=== PATIENT | female | born 1945 | race Caucasian/White ===

== ENCOUNTER 2017-08-17 13:37 | Emergency (ER) | payer MEDICARE ==
[2017-08-17 14:32] LABS: Bilirubin Negative (Negative); Blood, Urine Negative (Negative); Glucose, Urine (Dipstick) Negative (Negative); Ketone, Urine Trace mg/dL (Negative); Nitrite Negative (Negative); Protein, Urine (Dipstick) Trace mg/dL (Neg-Trace)
[2017-08-17 14:36] LABS: Bacteria/HPF None Seen HPF (None Seen)
--- NOTE | 2017-08-17 14:43 | RAD ---
PORTABLE CHEST 1 VIEW: Date: 08/17/17 Time: 1358 hours HISTORY: Syncope, fall. FINDINGS/IMPRESSION: The heart size is enlarged. The aorta is tortuous. The lungs are well expanded without focal areas o f consolidation, pneumothorax, or pleural effusions. There are degenerative changes in the left shou lder joint with suggestion of old fracture of the neck of the left humerus. Clinical correlation is recommended. POS: [facility]
[2017-08-17 14:50] LABS: Renal Epithelial 0-3 HPF (0-3); Transitional Epithelial 0-3 HPF (0-3)
--- NOTE | 2017-08-17 14:58 | CT ---
CT BRAIN WITHOUT CONTRAST: Date: 08/17/17 HISTORY: Trauma. Fall from standing height without loss of consciousness, headache. FINDINGS: There is ventricular sulcal prominence due to cortical atrophy. No evidence of acute infarct, hemorr judie, midline shift, or abnormal extra-axial fluid collections are seen. The basilar cisterns are pa tent. The bony calvarium is intact. The visualized paranasal sinuses and mastoid air cells are well aerated. IMPRESSION: No CT evidence of acute intracranial process. POS: [facility]
--- NOTE | 2017-08-17 15:08 | CT ---
CT CERVICAL SPINE WITH CORONAL AND SAGITTAL REFORMATIONS: HISTORY: Trauma. Fall. Headache FINDINGS: There is loss of cervical lordosis with mild reversal. There is interbody fusion at the C5, C6, and C7 levels. Degenerative changes are present. No acute fracture or subluxation is identified. POS: [facility]
--- NOTE | 2017-08-17 15:13 | RAD ---
RIGHT LEG TWO VIEWS: HISTORY: Fall. Right leg pain. FINDINGS: The right tibia and fibula appear intact. POS: [facility]
[2017-08-17 16:00] LABS: #Basophils 0.1 thou/uL (0.0-0.2); #Eosinphils 0.1 thou/uL (0.0-0.7); #Lymphocytes 0.9 thou/uL (1.20-3.40); #Monocytes 0.7 thou/uL (0.11-0.59); #Neutrophils 10.6 thou/uL (1.40-6.50); %Basophils 0.5 % (0.0-1.0); %Eosinophils 0.9 % (0.0-10.0); %Lymphocytes 7.4 % (21.0-51.0); %Monocytes 5.7 % (0.0-10.0); Hematocrit 37.3 % (36.0-47.0); Mean Platelet Volume 8.3 fL (7.4-10.4); Red Blood Cell (RBC) Count 3.86 mill/uL (4.20-5.40); White Blood Cell (WBC) Count 12.4 thou/uL (4.8-10.8)
[2017-08-17 16:06] LABS: PTT 28.5 SEC (22.9-36.1)
[2017-08-17 16:14] LABS: Anion Gap 13 mmol/L (10-20); BUN (Urea Nitrogen) 14 mg/dL (9.8-20.1); CK (CPK) 134 U/L (29-168); Calc. Creatinine Clearance 0 mL/min (70-130); Calcium 8.9 mg/dL (7.8-10.44); Carbon Dioxide 29 mmol/L (23-31); Chloride 102 mmol/L (98-107); Estimated GFR-MDRD 79; Lipase 36 U/L (8-78)
[2017-08-17 16:19] LABS: Troponin I Less than 0.010 ng/mL (< 0.028)
== END 2017-08-17 16:44 | disposition home or self-care (01) ==
LOC: ERS 13:37
DX: S09.90XA Unspecified injury of head, initial encounter (principal); S16.1XXA Strain of muscle, fascia and tendon at neck level, initial encounter; S80.12XA Contusion of left lower leg, initial encounter; Z79.899 Other long term (current) drug therapy; W18.30XA Fall on same level, unspecified, initial encounter; Y92.129 Unspecified place in nursing home as the place of occurrence of the external cause
CPT/HCPCS: 36415; 51701; 70450; 71010; 72125; 80048; 81003; 81015; 82553; 83690; 84484; 85025; 85610; 85730; 93005; A4353

== ENCOUNTER 2018-05-02 12:06 | Emergency (ER) | payer MEDICARE ==
--- NOTE | 2018-05-02 13:14 | CT ---
HEAD CT WITHOUT CONTRAST: COMPARISON: 08/17/17. HISTORY: Fall. TECHNIQUE: Noncontrast head CT is performed from the skull base to the skull vertex. FINDINGS: No parenchymal hemorrhage. No extraaxial hematoma. No midline shift. Basilar cisterns are patent. Age-appropriate atrophy. Chronic small-vessel ischemic changes of the white matter identified. Cor tical gonsalez-white matter differentiation is preserved. No evidence of hydrocephalus. Calvarium is in tact. Adequate aeration of the sinuses and mastoid air cells. Cavernous carotid atherosclerosis. IMPRESSION: No acute intracranial process. No intracranial posttraumatic sequelae. POS: [facility]
== END 2018-05-02 13:12 | disposition home or self-care (01) ==
LOC: ERS 12:06
DX: S09.90XA Unspecified injury of head, initial encounter (principal); E03.9 Hypothyroidism, unspecified; G30.9 Alzheimer's disease, unspecified; F02.80 Dementia in other diseases classified elsewhere, unspecified severity, without behavioral disturbance, psychotic disturbance, mood disturbance, and anxiety; F32.9 Major depressive disorder, single episode, unspecified; Z79.899 Other long term (current) drug therapy; W19.XXXA Unspecified fall, initial encounter
CPT/HCPCS: 70450

== ENCOUNTER 2018-06-21 18:51 | Emergency (ER) | payer MEDICARE ==
[2018-06-21 20:03] LABS: #Eosinphils 0.1 thou/uL (0.0-0.7); #Lymphocytes 1.4 thou/uL (1.20-3.40); #Monocytes 0.4 thou/uL (0.11-0.59); #Neutrophils 4.7 thou/uL (1.40-6.50); %Basophils 0.6 % (0.0-1.0); %Eosinophils 1.8 % (0.0-10.0); %Lymphocytes 21.1 % (21.0-51.0); %Monocytes 6.2 % (0.0-10.0); %Neutrophils 70.3 % (42.0-75.0); Hemoglobin 12.2 g/dL (12.0-16.0); Mean Corpuscular HGB CONC 34.4 g/dL (32.0-36.0); Mean Corpuscular Hemoglobin 32.8 pg (27.0-31.0); Mean Corpuscular Volume 95.5 fL (78.0-98.0); Mean Platelet Volume 7.6 fL (7.4-10.4); Platelet Count 202 thou/uL (130-400); RBC Distribution Width 11.1 % (11.5-14.5); Red Blood Cell (RBC) Count 3.72 mill/uL (4.20-5.40); White Blood Cell (WBC) Count 6.6 thou/uL (4.8-10.8)
--- NOTE | 2018-06-21 20:21 | CT ---
CT CERVICAL SPINE NONCONTRAST: HISTORY: Fall. Neck injury. COMPARISON: 08/17/2017 FINDINGS: Reversal of the normal lordotic curvature of the lower cervical spine and fusion of the C5, C6, and C 7 vertebral bodies is similar to the previous exam. No acute fracture or dislocation. The cervicoth oracic junction is intact. Otherwise, mild degenerative changes are stable. IMPRESSION: No acute osseous abnormalities are demonstrated. POS: [facility]
--- NOTE | 2018-06-21 20:22 | CT ---
CT HEAD NONCONTRAST: HISTORY: Fall. Head injury. COMPARISON: 05/02/2008 FINDINGS: There is no evidence of acute intracranial hemorrhage or infarct. Diffuse cortical atrophy and chron ic ischemic small vessel disease is stable. No mass effect or shift of midline structures. The visu alized paranasal sinuses remain well aerated. IMPRESSION: Chronic type findings are stable. No acute intracranial abnormalities are demonstrated. POS: [facility]
[2018-06-21 20:24] LABS: ALT (SGPT) 18 U/L (8-55); AST (SGOT) 25 U/L (5-34); Albumin 4.2 g/dL (3.4-4.8); Alkaline Phosphatase 164 U/L (40-150); Anion Gap 14 mmol/L (10-20); BUN (Urea Nitrogen) 26 mg/dL (9.8-20.1); Bilirubin, Total 0.3 mg/dL (0.2-1.2); Calc. Creatinine Clearance 0 mL/min (70-130); Carbon Dioxide 28 mmol/L (23-31); Chloride 104 mmol/L (98-107); Estimated GFR-MDRD 63; Globulin 2.7 g/dL (2.4-3.5); Glucose 103 mg/dL (83-110); Potassium 4.5 mmol/L (3.5-5.1); Protein, Total 6.9 g/dL (6.0-8.3); Sodium 141 mmol/L (136-145)
[2018-06-21 20:29] LABS: Troponin I Less than 0.010 ng/mL (< 0.028)
[2018-06-21] MEDS ORDERED: Bacitracin Zinc 1 Packet ONE (21:57)
== END 2018-06-21 22:01 | disposition home or self-care (01) ==
LOC: ERS 18:51
DX: S01.01XA Laceration without foreign body of scalp, initial encounter (principal); G30.9 Alzheimer's disease, unspecified; F02.80 Dementia in other diseases classified elsewhere, unspecified severity, without behavioral disturbance, psychotic disturbance, mood disturbance, and anxiety; F32.9 Major depressive disorder, single episode, unspecified; E03.9 Hypothyroidism, unspecified; Z79.1 Long term (current) use of non-steroidal anti-inflammatories (NSAID); Z79.899 Other long term (current) drug therapy; W19.XXXA Unspecified fall, initial encounter
CPT/HCPCS: 12001; 36415; 70450; 72125; 80053; 82553; 84484; 85025

== ENCOUNTER 2018-07-13 10:36 | Emergency (ER) | payer MEDICARE ==
--- NOTE | 2018-07-13 11:35 | CT ---
CT BRAIN PERFORMED WITHOUT CONTRAST ENHANCEMENT: HISTORY: Seizure. Altered mental status. COMPARISON: 06/21/2018 FINDINGS: There is generalized ventricular and sulcal prominence. There is decreased attenuation in the perive ntricular white matter. There are no signs of intracerebral hemorrhage or extraaxial fluid collectio ns. The mastoid air cells and visualized sinuses are clear. IMPRESSION: Atrophy with chronic white matter change. Stable examination. POS: [facility]
[2018-07-13 12:15] LABS: #Eosinphils 0.2 thou/uL (0.0-0.7); #Lymphocytes 1.4 thou/uL (1.20-3.40); #Monocytes 0.5 thou/uL (0.11-0.59); #Neutrophils 6.2 thou/uL (1.40-6.50); %Basophils 0.4 % (0.0-1.0); %Eosinophils 2.1 % (0.0-10.0); %Lymphocytes 16.7 % (21.0-51.0); %Monocytes 5.7 % (0.0-10.0); %Neutrophils 75.1 % (42.0-75.0); Hemoglobin 11.7 g/dL (12.0-16.0); Mean Corpuscular HGB CONC 32.7 g/dL (32.0-36.0); Mean Corpuscular Hemoglobin 31.8 pg (27.0-31.0); Mean Corpuscular Volume 97.2 fL (78.0-98.0); Mean Platelet Volume 8.9 fL (7.4-10.4); Platelet Count 173 thou/uL (130-400); RBC Distribution Width 11.3 % (11.5-14.5); Red Blood Cell (RBC) Count 3.69 mill/uL (4.20-5.40); White Blood Cell (WBC) Count 8.2 thou/uL (4.8-10.8)
[2018-07-13 12:27] LABS: ALT (SGPT) 12 U/L (8-55); AST (SGOT) 18 U/L (5-34); Albumin 3.7 g/dL (3.4-4.8); Alkaline Phosphatase 146 U/L (40-150); Anion Gap 15 mmol/L (10-20); BUN (Urea Nitrogen) 21 mg/dL (9.8-20.1); Bilirubin, Total 0.3 mg/dL (0.2-1.2); CK (CPK) 132 U/L (29-168); Calc. Creatinine Clearance 0 mL/min (70-130); Calcium 8.3 mg/dL (7.8-10.44); Carbamazepine-Tegretol 9.9 ug/mL (4.0-12.0); Carbon Dioxide 24 mmol/L (23-31); Chloride 105 mmol/L (98-107); Estimated GFR-MDRD 74; Globulin 2.6 g/dL (2.4-3.5); Glucose 83 mg/dL (83-110); Magnesium 1.8 mg/dL (1.6-2.6); Potassium 3.9 mmol/L (3.5-5.1); Protein, Total 6.3 g/dL (6.0-8.3); Sodium 140 mmol/L (136-145)
[2018-07-13 13:56] LABS: Bilirubin Negative (Negative); Blood, Urine Large (Negative); Glucose, Urine (Dipstick) Negative (Negative); Leukocyte Moderate (Negative); Nitrite Negative (Negative); Protein, Urine (Dipstick) 30 mg/dL (Neg-Trace); Specific Gravity, Urine 1.015 (1.005-1.030); Urobilinogen 0.2 mg/dL (0.2-1.0)
[2018-07-13 13:59] LABS: Clarity CLOUDY (Clear); Squamous Epithelial 21-50 HPF (0-3)
[2018-07-13 14:00] LABS: Bacteria/HPF 3+ HPF (None Seen); Hyaline Casts/LPF NONE SEEN LPF (0-3 Hyaline); Renal Epithelial None Seen HPF (0-3)
[2018-07-13] MEDS ORDERED: cefTRIAXone\\ROCEPHIN 1 GM in Sodium Chloride 0.9% 100 ML IVPB SCH (14:15)
--- NOTE | 2018-07-17 12:24 | EKG ---
Test Reason : Blood Pressure : / mmHG Vent. Rate : 054 BPM Atrial Rate : 054 BPM P-R Int : 216 ms QRS Dur : 076 ms QT Int : 468 ms P-R-T Axes : 052 -03 054 degrees QTc Int : 443 ms Sinus bradycardia with 1st degree A-V block Possible Anterior infarct , age undetermined Abnormal ECG Confirmed by BASSEM CAMPOS ([id number]), job interviewer NORA FOX ([id number]) on 07/17/2018 12:23:31 PM Referred By: Confirmed By:BASSEM CAMPOS
== END 2018-07-13 15:03 | disposition home or self-care (01) ==
LOC: ERS 10:36
DX: N39.0 Urinary tract infection, site not specified (principal); E03.9 Hypothyroidism, unspecified; G30.9 Alzheimer's disease, unspecified; F02.80 Dementia in other diseases classified elsewhere, unspecified severity, without behavioral disturbance, psychotic disturbance, mood disturbance, and anxiety; F32.9 Major depressive disorder, single episode, unspecified; Z79.899 Other long term (current) drug therapy
CPT/HCPCS: 36415; 51701; 70450; 80053; 80156; 81003; 81015; 82550; 83735; 85025; 87077; 87086; 87186; 93005; 96365; A4353; J0696; J7050

== ENCOUNTER 2018-08-29 22:29 | Inpatient (IN) | payer MEDICARE ==
[2018-08-29] MEDS ORDERED: Lidocaine 1% w/Epinephrine 1:100K 20 ML VIAL ONE (22:44)
--- NOTE | 2018-08-29 23:51 | CT ---
CT BRAIN: HISTORY: Fall. Head trauma. COMPARISON: 07/13/2018 FINDINGS: Noncontrast enhanced CT images of the brain demonstrate a 5.2 x 1.4 cm area of acute hemorrhage, just lateral to the left lateral frontal lobe, seen on axial image #23. This area of hemorrhage appears to be convex on both medial and lateral surfaces. This may represent a possible epidural hematoma. I do not see definite visible evidence of a left temporal bone fracture. No evidence of a left parie mounika fracture is seen. Some soft tissue injury and hematoma is seen in the left periorbital soft tiss ues. No significant evidence of midline shift is seen. There is cortical atrophy and deep white mat ter ischemic change seen. No definite evidence of subarachnoid hemorrhage is seen. No evidence of c oup or contrecoup type brain parenchymal injuries seen. IMPRESSION: Left extraaxial hematoma, as described above. The findings were called to Dr. Ruvalcaba, emergency room department, at 11:33 p.m., on 08/29/2018 CODE CR POS: [facility]
[2018-08-30] MEDS ORDERED: Dextrose 5% in Water 1,000 ML IV PRN (01:17)
[2018-08-30] MEDS ORDERED: Dextrose 50% Abboject 50 ML SYRINGE SLOW IVP PRN (01:17)
[2018-08-30] MEDS ORDERED: Ondansetron PF 4 MG/2 ML Vial IVP PRN (01:17)
[2018-08-30] MEDS ORDERED: Ondansetron ODT 4 MG TAB PO PRN (01:17)
[2018-08-30] MEDS ORDERED: hydrALAZINE 20 MG/ML VIAL SLOW IVP PRN (01:17)
[2018-08-30] MEDS ORDERED: Acetaminophen 1,000 MG in Premix Bag 1 BAG IVPB SCH (01:30)
[2018-08-30 03:58] LABS: #Eosinphils 0.4 thou/uL (0.0-0.7); #Lymphocytes 1.4 thou/uL (1.20-3.40); #Monocytes 0.8 thou/uL (0.11-0.59); #Neutrophils 6.3 thou/uL (1.40-6.50); %Basophils 0.4 % (0.0-1.0); %Eosinophils 4.4 % (0.0-10.0); %Monocytes 8.6 % (0.0-10.0); %Neutrophils 70.6 % (42.0-75.0); Hemoglobin 11.1 g/dL (12.0-16.0); Mean Corpuscular HGB CONC 32.9 g/dL (32.0-36.0); Mean Corpuscular Hemoglobin 31.9 pg (27.0-31.0); Mean Corpuscular Volume 96.9 fL (78.0-98.0); Mean Platelet Volume 8.3 fL (7.4-10.4); Platelet Count 181 thou/uL (130-400); RBC Distribution Width 11.1 % (11.5-14.5)
--- NOTE | 2018-08-30 04:07 | HP ---
DATE OF ADMISSION: 08/30/2018 REQUESTING PHYSICIAN: Jacob Ruvalcaba M.D. ATTENDING SURGEON: Carroll Douglass M.D. CONSULTATION: Neurosurgery, Dr. Berkowitz. HISTORY OF PRESENT ILLNESS: The patient is a 73-year-old woman who currently resides in an Alzheimer unit of a long-term. She was found down on the floor by a nursing staff and had an unk nown amount of time of loss of consciousness. She was brought to the emergency department, evaluated , examined, and noted to have extrapyramidal, intracranial hemorrhage, at which time we were asked to evaluate the patient for admission and obtain neurosurgical consultation. The patient was evaluated by Neurosurgery. They have requested that we admit the patient for serial neuro exams and repeat he ad CT in the morning. The patient also had a laceration to the left side of her face that was repair ed in the emergency department. ALLERGIES: None. CURRENT MEDICATIONS: Carbamazepine, furosemide, sertraline, levothyroxine, alprazolam, ibuprofen, ri speridone, and Abilify. PAST MEDICAL HISTORY: Alzheimer's/dementia, hypothyroidism, depression. PAST SURGICAL HISTORY: Tonsillectomy, endometriosis surgery. SOCIAL HISTORY: Again, the patient resides in a nursing facility in an Alzheimer unit. She has no h istory of drug, tobacco, or alcohol use. Of note, the patient's is at bedside to give histor y and let us know that the patient is at her baseline mental status. PHYSICAL EXAMINATION: VITAL SIGNS: Blood pressure 145/90, heart rate 58, respirations 16, oxygen saturation is 97% on room air, and temperature is 98.8. GENERAL: The patient is resting comfortably in the ER bed. She is awake. She will give very simple answers to simple questions, but inconsistently. She will follow basic commands, again inconsistent ly. According to her at bedside, this is her baseline. HEENT: Head shows a laceration that has been repaired on the left side of her face and contusions no wale to the left side of her face. Eyes are PERRLA. The patient does not follow command to test her extraocular motion. Ears are atraumatic without discharge. Nose is atraumatic without discharge. O ropharynx is clear. NECK: Nontender. Trachea is midline. No JVD. CHEST: Clear to auscultation with good inspiratory and expiratory effort. HEART: Regular rate and rhythm. ABDOMEN: Soft, flat, nontender with active bowel sounds. Pelvis is stable. EXTREMITIES: Neurovascularly intact x4. Capillary refill is less than 3 seconds. Pulses are 2+. BACK: Reportedly nontender and atraumatic. LABORATORY DATA: Lab work is pending. RADIOGRAPHIC FINDINGS: CT of the brain without contrast shows a left extra-axial hematoma. ASSESSMENT AND PLAN: 1. Status post unwitnessed fall. 2. Left extra-axial hematoma. 3. History of Alzheimer dementia. Plan will be to admit the patient to the [facility] for frequent neuro exams per neurosurgical instructions . The patient will also have repeat head CT in the morning. We will use nonnarcotic pain medication for pain control tonight and make placement decisions tomorrow. The evaluation, examination, labora tory, and radiographic findings will be discussed with Dr. Douglass after this dictation.
[2018-08-30 04:20] LABS: Anion Gap 12 mmol/L (10-20); BUN (Urea Nitrogen) 23 mg/dL (9.8-20.1); Calc. Creatinine Clearance 70 mL/min (70-130); Calcium 8.6 mg/dL (7.8-10.44); Carbon Dioxide 28 mmol/L (23-31); Chloride 107 mmol/L (98-107); Estimated GFR-MDRD 77; Glucose 104 mg/dL (83-110); Potassium 3.6 mmol/L (3.5-5.1); Sodium 143 mmol/L (136-145)
--- NOTE | 2018-08-30 06:37 | CON ---
DATE OF CONSULTATION: 08/30/2018 ATTENDING PHYSICIAN: Dr. Sajan Berkowitz. HISTORY OF PRESENT ILLNESS: The patient is a 73-year-old female with a past medical history of Alzheimer disease, who presented to the emergency department per EMS after an unwitnessed fall out of bed. Fall was unwitnessed therefore LOC is unknown. The patient was found on the floor, down time is also unknown. The patient had a small laceration along the left periorbital region, which was repaired by the ER physician. CT head on arrival was notable for a small left frontal epidural hematoma. There is no midline shift. There is no evidence of skull fracture. No additional injuries were found on trauma evaluation. Neurosurgery was consulted for evaluation of patient's acute intracranial hemorrhage. I am seeing the patient at the bedside. She has a GCS of 14. She opens her eyes spontaneously. She is confused at baseline. She follows some commands. The is also at the bedside and he reports the patient appears to be neurologically at her baseline. PAST MEDICAL HISTORY: Alzheimer disease and hypothyroidism. PAST SURGICAL HISTORY: Tonsillectomy, endometriosis. SOCIAL HISTORY: The patient does not smoke, drink, or use any drugs. REVIEW OF SYSTEMS: Per HPI, the patient has no known drug allergies. PHYSICAL EXAMINATION: VITAL SIGNS: BP is 172/72, pulse is 74, respirations 16, temperature 97.8. The patient is 98% on room air. CONSTITUTIONAL: GCS 14. Neurologically at baseline per . Awake, alert , in no acute distress. HEAD: She has a small laceration 4 cm along the left periorbital region. There is ecchymosis surrounding. It has recently been repaired by the ER physician. ENT: Oral mucosa is pink, intact, and moist. She has a normal voice. NECK: Nontender to palpation. Free active range of motion. No meningismus or nuchal rigidity. CARDIOVASCULAR: Regular rate and rhythm. RESPIRATORY: The patient is breathing comfortably. No evidence of dyspnea. BACK: Nontender to palpation. MUSCULOSKELETAL: Free active range of motion of all extremities. No focal weakness, no reflex asymmetry. NEUROLOGIC: She has a GCS of 14. Normal speech. She does follow commands, moving all fours with no evidence of focal motor weakness. The patient is neurologically at her baseline with some confusion per her . She is oriented x1. ASSESSMENT AND PLAN: This is a 73-year-old female status post fall from bed, found to have acute left frontal epidural hematoma on CT. There is no mass effect. There is no evidence of skull fracture. We will plan to monitor the patient closely with q.1 neuro checks in the ICU. Head of the bed should be elevated to 30 degrees with strict blood pressure control with systolic blood pressure goal of less than 150. The patient is not on anticoagulants and we will hold on any of these medications. I have discussed this plan with Dr. Berkowitz who is in agreement. We will plan to repeat the patient's a.m. CT in approximately 8 hours from the event. [facility]
[2018-08-30] MEDS ORDERED: Acetaminophen 500 MG TAB PO SCH (07:00)
[2018-08-30 07:23] VITALS: BMI 21.0
--- NOTE | 2018-08-30 07:45 | CT ---
BRAIN CT WITHOUT IV CONTRAST: COMPARISON: 7:24 p.m., 09/01/2018. FINDINGS: Again noted is a left-sided extraaxial hemorrhage. No evidence for midline shift. No evidence for n ew hemorrhage. Bilateral atrophy and chronic white matter ischemic change. IMPRESSION: Stable left parietal extraaxial hemorrhage. No significant midline shift. No new hemorrhage. POS: [facility]
[2018-08-30] MEDS ORDERED: Famotidine 20 MG TAB PO SCH (09:00)
--- NOTE | 2018-08-30 10:25 | DIS ---
DATE OF ADMISSION: 08/30/2018 DATE OF DISCHARGE: 08/30/2018 ADMITTING PHYSICIAN: Dr. Carroll Douglass DISCHARGING PHYSICIAN: Dr. Malik Burgos CONSULTANTS: Dr. Berkowitz with Neurosurgery. ADMITTING DIAGNOSES: 1. Status post fall. 2. Left temporal parietal epidural hematoma. 3. History of senile dementia of Alzheimer's type. DISCHARGE DIAGNOSES: 1. Status post fall. 2. Left temporal parietal epidural hematoma. 3. History of senile dementia of Alzheimer's type. HISTORY AND HOSPITAL COURSE: A 73-year-old woman who suffered an unwitnessed apparent fall resulting in a small left temporal parietal epidural hematoma. The patient was admitted for observation. The patient was seen by Neurosurgery and follow up repeat CT scan of the brain 7 hours from previous shows a stable left temporal parietal epidural hematoma. It has been now over 12 hours since the patient was placed in observation. Neurological examination is unchanged. According to the patient's at bedside her neurologic examination is at baselin e. She moves all extremities. She does follow commands. Christine coma scale currently is E4 M6 V5. PHYSICAL EXAMINATION: VITAL SIGNS: This morning includes blood pressure 140/61, pulse 52, respiratory rate is 14, temperat ure is 98.2 degrees Fahrenheit. Oxygen saturation is 99% on room air. The patient has maximized hospital benefit. She requires no narcotic analgesics. She is tolerating general diet. She will be discharged to the extended care facility to follow up with Neurosurgery in the [facility]. She requires no further follow up from this Trauma Surgery standpoint except for as need ed. She is to resume all prehospital medications as prescribed by her primary care physician. She is to be on no blood thinners or nonsteroidal anti-inflammatory agents until she has been release d by Neurosurgery.
[2018-08-30 11:52] VITALS: TEMP 98.6
[2018-08-30 13:54] VITALS: BP 142/70
== END 2018-08-30 12:35 | DRG 84 ==
LOC: ERS 22:29 → IMCU/EMU 08-30 01:14
PROVIDERS: ADMIT Surgery; ATTEND Surgery
DX: S06.4X9A Epidural hemorrhage with loss of consciousness of unspecified duration, initial encounter (principal); W06.XXXA Fall from bed, initial encounter; G30.1 Alzheimer's disease with late onset; F02.80 Dementia in other diseases classified elsewhere, unspecified severity, without behavioral disturbance, psychotic disturbance, mood disturbance, and anxiety; E03.9 Hypothyroidism, unspecified; F32.9 Major depressive disorder, single episode, unspecified
CPT/HCPCS: 12013; 36415; 70450; 80048; 85025; G0390; G8978-GP-CL; G8979-GP-CJ; G8987-GO-CM; G8988-GO-CM; G8989-GO-CM; J0131; J2001

== ENCOUNTER 2018-09-28 09:14 | Observation (INO) | payer MEDICARE ==
[2018-09-28 09:48] LABS: #Basophils 0.1 thou/uL (0.0-0.2); #Eosinphils 0.2 thou/uL (0.0-0.7); #Lymphocytes 1.7 thou/uL (1.20-3.40); #Monocytes 0.5 thou/uL (0.11-0.59); #Neutrophils 4.6 thou/uL (1.40-6.50); %Basophils 0.9 % (0.0-1.0); %Lymphocytes 23.9 % (21.0-51.0); %Monocytes 7.6 % (0.0-10.0); %Neutrophils 64.6 % (42.0-75.0); Hemoglobin 13.5 g/dL (12.0-16.0); Mean Corpuscular HGB CONC 32.5 g/dL (32.0-36.0); Mean Corpuscular Hemoglobin 32.2 pg (27.0-31.0); Mean Platelet Volume 7.9 fL (7.4-10.4); Platelet Count 248 thou/uL (130-400); RBC Distribution Width 11.3 % (11.5-14.5); Red Blood Cell (RBC) Count 4.19 mill/uL (4.20-5.40); White Blood Cell (WBC) Count 7.1 thou/uL (4.8-10.8)
[2018-09-28 09:55] LABS: Bilirubin Negative (Negative); Blood, Urine Trace (Negative); Glucose, Urine (Dipstick) Negative (Negative); Leukocyte Moderate (Negative); Nitrite Negative (Negative); Protein, Urine (Dipstick) 30 mg/dL (Neg-Trace); Specific Gravity, Urine 1.025 (1.005-1.030); Urobilinogen 0.2 mg/dL (0.2-1.0)
--- NOTE | 2018-09-28 10:04 | RAD ---
PORTABLE CHEST: Date: 09/28/18 INDICATION: Malaise and mental status change. COMPARISON: 08/17/17. FINDINGS: Mild cardiomegaly. Lung bower appear clear of infiltrate. Vascular markings upper normal and stable. Deformity and degenerative change to the left shoulder again noted. IMPRESSION: No acute lung process. No significant interval change. POS: [facility]
[2018-09-28 10:09] LABS: ALT (SGPT) 32 U/L (8-55); AST (SGOT) 38 U/L (5-34); Albumin 3.9 g/dL (3.4-4.8); Alkaline Phosphatase 156 U/L (40-150); Anion Gap 12 mmol/L (10-20); BUN (Urea Nitrogen) 16 mg/dL (9.8-20.1); Bilirubin, Total 0.4 mg/dL (0.2-1.2); Calc. Creatinine Clearance 0 mL/min (70-130); Calcium 8.9 mg/dL (7.8-10.44); Carbon Dioxide 26 mmol/L (23-31); Chloride 107 mmol/L (98-107); Estimated GFR-MDRD 73; Globulin 2.8 g/dL (2.4-3.5); Glucose 108 mg/dL (83-110); Potassium 4.1 mmol/L (3.5-5.1); Protein, Total 6.7 g/dL (6.0-8.3); Sodium 141 mmol/L (136-145)
[2018-09-28 10:24] LABS: Clarity Opaque (Clear)
[2018-09-28 10:30] LABS: Bacteria/HPF 2+ HPF (None Seen); Hyaline Casts/LPF NONE SEEN LPF (0-3 Hyaline); RBC/HPF 0-3 HPF (0-3)
[2018-09-28 10:32] LABS: CKMB 4.2 ng/mL (0-6.6); Troponin I Less than 0.010 ng/mL (< 0.028)
--- NOTE | 2018-09-28 10:53 | CT ---
HEAD CT WITHOUT CONTRAST: HISTORY: Dementia. Combative. COMPARISON: 08/30/2018 FINDINGS: Interval increase in size of a mixed attenuation left subdural collection. The collection now measur es 3.3 cm in maximum dimension. There is mass effect upon the left cerebrum. There is sulcal efface ment. There is 1.5 cm of left to right subfalcine herniation. There is effacement of the left ambie nt cisterns. There is asymmetric dilatation of the right ventricular system due to entrapment. Chronic small vess el ischemic changes of the white matter are identified. Adequate aeration of the sinuses and mastoid air cells. The calvarium is intact. IMPRESSION: Interval increase in size of a mixed attenuation collection in the left subdural region. There is as sociated mass effect, ventricular entrapment, and midline shift. The results of the study were discussed with Fawn Reed on 09/28/2018 at 10:44 a.m. CODE ZAK POS: [facility]
[2018-09-28] MEDS ORDERED: Acetaminophen 650 MG Suppository PR PRN (12:48)
[2018-09-28] MEDS ORDERED: Ondansetron PF 4 MG/2 ML Vial IVP PRN (12:48)
--- NOTE | 2018-09-28 13:56 | HP ---
PRIMARY CARE PROVIDER: Aníbal Martinez MD HISTORY OF PRESENT ILLNESS: The patient was referred to [facility] by [facility], who suffered a small left subdural approximately a month ago, was brought to the emergency room from the [facility] for increasing lethargy. The patient is awake, does not respond appropriately, is nonverbal. There are no witnesses here. She was found to have an enlarging left subdural hematoma with herniation, midline shift, etc. PAST MEDICAL HISTORY: Pertinent for a subdural hematoma one month ago, Alzheimer disease, and hypothyroidism. CURRENT MEDICATIONS: 1. Lasix 40 mg a day. 2. Levothyroxine 150 mcg a day. 3. Carbamazepine 100 mg once a day. 4. Sertraline 100 mg a day. 5. Meloxicam 7.5 mg once a day. 6. Xanax 0.25 mg every 8 hours p.r.n. 7. Norvasc 5 mg a day. 8. Remeron 15 mg a day. 9. Abilify 5 mg once a day. ALLERGIES: NO KNOWN DRUG ALLERGIES. SOCIAL HISTORY: Resident of [facility]. No history of tobacco, drug, or alcohol use. I have spoken with the spoken over the phone about in hospital DNR. He confirms that she is DNR. FAMILY HISTORY: Unavailable at this time as there are no witnesses here and the patient is nonverbal. REVIEW OF SYSTEMS: Unobtainable. The patient is nonverbal. PHYSICAL EXAMINATION: GENERAL: Her eyes are open. She looks at you. VITAL SIGNS: Blood pressure 184/61, pulse of 59, respirations 16, room air sat 98%, and temperature 98.4. HEAD, EYES, EARS, NOSE, AND THROAT: Pupils are equal, round, and reactive with extraocular movements. No doll's eyes. Does not follow directions. Sclerae are white. Tympanic membranes are clear. Nose is clear. Oral mucous membranes are dry. NECK: No jugular venous distention, adenopathy, or thyromegaly. CHEST: Clear to auscultation and percussion. HEART: Had a regular rate and rhythm. First and second heart sounds are clear. There are no appreciated murmurs or gallops. ABDOMEN: Soft. Bowel sounds are normal. There is no hepatosplenomegaly. No mass. No rebound. No bruits. EXTREMITIES: Reveal no cyanosis, clubbing, or edema. Pulses; carotid, radial, femoral, and dorsalis pedis pulses are intact. SKIN: Warm and dry without bruises or rash. LYMPHATIC SURVEY: Reveals no tender or swollen lymph nodes in the axilla, inguinal, or cervical area. There are no petechial hemorrhages. NEUROLOGIC: Cranial nerves with facies are symmetric. Pupils are reactive. The plantar response is neutral. The deep tendon reflexes are symmetric. She has marked rigidity in both arms. She has greater spontaneous motion on the left than on the right. IMAGING STUDIES: CT scan of the brain reviewed by me reveals interval increase in collection of left subdural hematoma with associated mass effect, ventricular entrapment, midline shift, and subfalcine herniation. Chest x-ray, no cardiomegaly, CHF, or infiltrate, reviewed by me. EKG, regular sinus rhythm. No acute ST-T abnormality. LABORATORY DATA: White count 7.1, hemoglobin 13.5, and platelet count 345,000. Comprehensive metabolic profile, she has alkaline phosphatase of 156, AST of 38, otherwise normal. ADMITTING DIAGNOSES: 1. Expanding left subdural hematoma with midline shift, ventricular herniation. 2. Encephalopathy secondary to subdural hematoma. 3. Alzheimer disease. 4. Hypothyroidism. PLAN: I have discussed this with the . She will be placed in the hospital on observation for palliative care consult. Hopefully, a hospice arrangement can be arranged soon. Her oral medicines will be held. She will be given gentle IV fluids in the time being. If necessary, medications will be given for agitation. However, at this point, it does not look like it will be necessary. Job ID: [id number] [facility]
--- NOTE | 2018-09-28 18:28 | CON ---
DATE OF CONSULTATION: HISTORY OF PRESENT ILLNESS: The patient is a 73-year-old female with a past medical history of Alzheimer's dementia, who was seen on 08/30/2018 by our service following a mechanical fall with a small left-sided epidural hematoma. The patient was neurologically at her baseline at that time and remains so throughout her prior admission. Her followup CT, the following day, was stable and the patient was discharged back to the half-way. Since her discharge home over the past several days, the half-way reports that the patient has become more lethargic and less interactive. Therefore, she was brought to the Emergency Department for new evaluation. On a repeat scan today, she shows a large left-sided chronic subdural hematoma with 14 mm of midline shift and ventriculomegaly. I have seen the patient at the bedside. She is awake and alert. She is seen moving all extremities. She is not speaking or following any commands at this time. shelter reports the patient is currently full code. PAST MEDICAL HISTORY: Alzheimer's dementia, hypothyroidism, and hypertension. PAST SURGICAL HISTORY: Tonsillectomy, endometriosis surgery. SOCIAL HISTORY: The patient does not smoke, drink, or use any drugs. ALLERGIES: NO KNOWN DRUG ALLERGIES. REVIEW OF SYSTEMS: Unobtainable due to patient's condition. CURRENT MEDICATIONS LIST: 1. Furosemide. 2. Levothyroxine. 3. Carbamazepine. 4. Sertraline. 5. Meloxicam. 6. Alprazolam. 7. Norvasc. 8. Remeron. 9. Colace. 10. Namzaric. 11. Abilify. PHYSICAL EXAMINATION: CONSTITUTIONAL: The patient is sitting in the bed comfortably. No acute distress. She has a GCS of 10, E4 V1 M5. HEENT: Head; normocephalic, atraumatic. Eyes; PERRLA. Extraocular movements intact. ENT; oral mucosa is dry. The patient has no verbal response at this time. NECK: Trachea is midline. Does not appear to have any tenderness to palpation on my exam. CARDIOVASCULAR: Regular rate and rhythm. PULMONARY: She has symmetric chest expansion. She is breathing comfortable. MUSCULOSKELETAL: She has no obvious deformities. Reactive range of motion of all extremities, and was seen moving spontaneously in the bed. NEURO: She has a GCS of 10, E4 V1 M5. ASSESSMENT AND PLAN: This is a 73-year-old female with a history of Alzheimer's dementia, who presented for increasing confusion and lethargy and was found to have a large left-sided chronic subdural hematoma. There is mass effect and midline shift from left to right. There is also enlargement of the ventricular system. On further discussion with the family, they believe she actually may have a DNR or DNI and they are attempting to locate these documents. Dr. Berkowitz and I both discussed with the son-in-law whose is currently at the bedside and they are leaning towards hospice care rather than acute surgical intervention. They will continue to have this family discussion and let us know how they would like to proceed. Until that time, we are recommending hospitalist admission, but are available for any further change in the plans or desire for surgical intervention. Job ID: [id number]
[2018-09-28] MEDS: D5 1/2 NS w/10 mEq KCl 1,000 ML/1,000 ML BAG IV SCH (20:45)
[2018-09-29] MEDS ORDERED: hydrALAZINE 20 MG/ML VIAL SLOW IVP PRN (01:24)
[2018-09-29] MEDS: D5 1/2 NS w/10 mEq KCl 1,000 ML/1,000 ML BAG IV SCH ×3 (05:29→20:11)
--- NOTE | 2018-09-29 12:13 | PDOC.PN ---
- Subjective Encounter Start Date: 09/29/18 Encounter Start Time: 12:10 -: non-verbal - Objective Resuscitation Status - Order Detail: 09/28/18 12:43 Resuscitation Status Routine Resuscitation Status: DNAR: NO Resuscitation Discussed with: has medical directive , discussed with MAR Reviewed: Yes Vital Signs & Weight: Vital Signs (12 hours) Temp Pulse Resp BP BP Pulse Ox 09/29/18 11:24 98.2 F 66 16 177/75 H 99 09/29/18 07:30 99.8 F H 69 22 H 180/80 H 98 09/29/18 04:00 98.0 F 71 20 186/71 H 98 09/29/18 02:57 78 195/80 H 09/29/18 01:32 98.2 F 78 20 199/76 H 93 L Result Diagrams: 09/28/18 09:41 09/28/18 09:41 Phys Exam - Physical Examination Neck: no JVD Respiratory: clear to auscultation bilateral Cardiovascular: RRR, no significant murmur Gastrointestinal: soft, positive bowel sounds Musculoskeletal: no edema Dx/Plan (1) Subdural hematoma Code(s): S06.5X9A - TRAUM SUBDR HEM W LOC OF UNSP DURATION, INIT Status: Acute (2) Encephalopathy acute Code(s): G93.40 - ENCEPHALOPATHY, UNSPECIFIED Status: Acute (3) Alzheimer disease Code(s): G30.9 - ALZHEIMER'S DISEASE, UNSPECIFIED; F02.80 - DEMENTIA IN OTH DISEASES CLASSD ELSWHR W/O BEHAVRL DISTURB Status: Acute (4) Hypothyroid Code(s): E03.9 - HYPOTHYROIDISM, UNSPECIFIED Status: Acute - Plan discussed with -: hospice pending * .
--- NOTE | 2018-09-29 15:47 | CON ---
DATE OF CONSULTATION: SUBJECTIVE: The patient is seen and examined. I agree with Cheyenne Riley's evaluation on 09/28/2018. Ms. Corley is a 73-year-old woman, who had a known left extra-axial traumatic hematoma, treated conservatively, who was then readmitted from her care home with a large chronic subdural hematoma causing mass effect and somnolence. She has debilitating Alzheimer's disease and was a DNR at the care home. I discussed her case with her son-in-law who then communicated with the , who was out of town yesterday. They were clear that they did not want any aggressive intervention and specifically did not want surgical intervention. In this situation given the progressive Alzheimer's and debilitating Alzheimer disease, I think this is reasonable decision. I agree with the plans for hospice and comfort care. We will defer to the hospitalist management in this regard. I appreciate their excellent care. Job ID: [id number]
[2018-09-30] MEDS: D5 1/2 NS w/10 mEq KCl 1,000 ML/1,000 ML BAG IV SCH (04:20)
[2018-09-30 08:01] VITALS: BP 195/99; TEMP 98.9
--- NOTE | 2018-09-30 09:12 | PDOC.PN ---
- Subjective Encounter Start Date: 09/30/18 Encounter Start Time: 09:11 Subjective: non-responsive - Objective Resuscitation Status - Order Detail: 09/28/18 12:43 Resuscitation Status Routine Resuscitation Status: DNAR: NO Resuscitation Discussed with: has medical directive , discussed with OBI Reviewed: Yes Vital Signs & Weight: Vital Signs (12 hours) Temp Pulse Resp BP Pulse Ox 09/30/18 07:58 98.9 F 72 24 H 195/99 H 97 Result Diagrams: 09/28/18 09:41 09/28/18 09:41 Phys Exam - Physical Examination Neck: no JVD Respiratory: clear to auscultation bilateral Cardiovascular: RRR, no significant murmur Gastrointestinal: soft, positive bowel sounds Musculoskeletal: no edema Dx/Plan (1) Subdural hematoma Code(s): S06.5X9A - TRAUM SUBDR HEM W LOC OF UNSP DURATION, INIT Status: Acute (2) Encephalopathy acute Code(s): G93.40 - ENCEPHALOPATHY, UNSPECIFIED Status: Acute (3) Alzheimer disease Code(s): G30.9 - ALZHEIMER'S DISEASE, UNSPECIFIED; F02.80 - DEMENTIA IN OTH DISEASES CLASSD ELSWHR W/O BEHAVRL DISTURB Status: Acute (4) Hypothyroid Code(s): E03.9 - HYPOTHYROIDISM, UNSPECIFIED Status: Acute - Plan comfort measures -: hospice pending * .
--- NOTE | 2018-09-30 11:55 | PDOC.EVN ---
Event Note - Event Note Event Note: Dx is traumatic subdural hematoma with midline shift and herniation
--- NOTE | 2018-09-30 12:51 | DIS ---
DATE OF ADMISSION: 09/28/2018 DATE OF DISCHARGE: 09/30/2018 TRANSFER CARE DISPOSITION: Discharged home with Home Health. FINAL DIAGNOSES: 1. Traumatic subdural hematoma, enlarging. 2. Encephalopathy secondary to subdural hematoma. 3. Alzheimer's disease. 4. Hypothyroidism. DISCHARGE MEDICINES: None. DISCHARGE DIET: None. CODE STATUS: DNR. PENDING AT THIS TIME DISCHARGE: Nothing. HOSPITAL COURSE: The patient, who had suffered a traumatic subdural hematoma one month before was brought to the hospital from the [facility] with increased lethargy. Her laboratory was really unrevealing, but her CAT scan revealed an expanding left subdural hematoma with midline shift herniation. Neurosurgery recommended no procedures. It was discussed with the family the once in the process of making the patient DNR with palliative care, Hospice was consulted. Hospice declined the patient for inpatient hospice. Arrangements made with [facility] to provide services at home. PROCEDURES: None. PROGNOSIS: Dismal. The patient is nonresponsive, going home, n.p.o., comfort measures only. This has been discussed at length with the family. Followup will be by [facility] and PCP, Dr. Aníbal Martinez. Job ID: [id number]
--- NOTE | 2018-10-02 12:17 | EKG ---
Test Reason : Blood Pressure : / mmHG Vent. Rate : 059 BPM Atrial Rate : 059 BPM P-R Int : 194 ms QRS Dur : 082 ms QT Int : 424 ms P-R-T Axes : 100 -13 044 degrees QTc Int : 419 ms Sinus bradycardia Anterior infarct , age undetermined Leftward axis Abnormal ECG Confirmed by ANALY WHITLOCK, CHICHI Sunshine ([id number]), primer expeditor and drier NORA FOX ([id number]) on 10/02/2018 12:17:17 PM Referred By: Confirmed By:CHICHI BECKFORD MD
== END 2018-09-30 15:37 | disposition home health service (06) ==
LOC: ERS 09:14 → T4-A 12:27
PROVIDERS: ADMIT Internal Medicine; ATTEND Internal Medicine
DX: S06.5X9A Traumatic subdural hemorrhage with loss of consciousness of unspecified duration, initial encounter (principal); G93.40 Encephalopathy, unspecified; G30.9 Alzheimer's disease, unspecified; F02.80 Dementia in other diseases classified elsewhere, unspecified severity, without behavioral disturbance, psychotic disturbance, mood disturbance, and anxiety; I10 Essential (primary) hypertension; E03.9 Hypothyroidism, unspecified; Z90.89 Acquired absence of other organs; Z79.1 Long term (current) use of non-steroidal anti-inflammatories (NSAID); Z79.899 Other long term (current) drug therapy; W19.XXXA Unspecified fall, initial encounter
CPT/HCPCS: 51701; 70450; 71045; 80053; 82553; 83880; 84484; 85025; 93005; 96374; 99285; G0378 ×2; 36415; 81003; 81015; 96360; 96361; A4353; J0360